=== PATIENT | female | born 1950 | race Caucasian/White ===

== ENCOUNTER → 2016-04-23 | Outpatient (CLI) | payer MEDICARE, OTHER | LOC: KOH-I 12:27 | DX: R05 Cough (principal); R91.8 Other nonspecific abnormal finding of lung field | CPT/HCPCS: 71020 ==

== ENCOUNTER → 2016-06-11 | Outpatient (CLI) | payer MEDICARE, OTHER | LOC: KOH-I 09:38 | DX: E87.5 Hyperkalemia (principal) | CPT/HCPCS: 71020 ==

== ENCOUNTER → 2020-08-09 | Outpatient (CLI) | payer OTHER | LOC: MAMO 14:11 | DX: Z12.31 Encounter for screening mammogram for malignant neoplasm of breast (principal) | CPT/HCPCS: 77063; 77067 ==

== ENCOUNTER → 2021-08-14 | Outpatient (CLI) | payer OTHER | LOC: MAMO 13:17 | DX: Z12.31 Encounter for screening mammogram for malignant neoplasm of breast (principal) | CPT/HCPCS: 77063; 77067 ==